=== PATIENT | female | born 1965 | race Caucasian/White ===

== ENCOUNTER 2019-05-27 18:29 | Emergency (ER) | payer BC, SELFPAY ==
[2019-05-27 18:29] VITALS: BP 136/110; PULSE 108; RESP 18; TEMP 36.4; O2SAT 94; BMI 34.0
--- NOTE | 2019-05-27 18:36 | ED_ITS ---
Entered by Shikha Pearson, acting as scribe for May 27, 2019 18:29 HPI - Altered Mental Status General: Chief Complaint: Altered Mental Status Stated Complaint: BIZARRE BEHAVIOR Time Seen by Provider: 05/27/19 18:35 Source: patient, family and EMS Mode of arrival: EMS Limitations: no limitations History of Present Illness: HPI narrative: 54 yo Female presents to ED with complaint of altered mental status/bizarre behavior. Pt states that she has no idea why she was brought here. Pt states that she apparently does crazy stuff sometimes. Pt is tearful and states that she hasn't had anything to drink or taken any drugs. Pt's significant other states that patient has fibromyalgia. Pt states that everybody knows that fibromyalgia is a bullshit diagnosis. Pt's s ignificant other states that he called EMS because the patient was down and couldn't get up. Pt still has unsteady gait but is improved now. Pt's significant other states that the patient has had episodes like this before. MD complaint: altered mental status Onset (ago): hour(s) Consistency of symptoms: Waxing and Waning Context: unknown Associated symptoms: Reports other (bizarre behavior) Review of Systems General: Reports: other (negative unless marked) Const: Denies: fever, chills, body aches, fatigue, malaise or diaphoresis Eyes: Denies: change in vision or blurry vision ENMT: Denies: throat pain, painful swallowing, hoarseness, ear pain, ear discharge, Change in hearing or nasal discharge Card: Denies: chest pain, palpitations, irregular heart rhythm, syncope, pre- syncope, shortness of breath on exertion or shortness of breath when lying down Resp: Denies: shortness of breath, productive cough, non-productive cough, wheezing, coughing up blood or chest congestion GI: Denies: abdominal pain, nausea, vomiting, vomiting blood, coffee grounds in vomit, diarrhea, constipation, cramping, blood in stool or black tarry stool : Denies: flank pain, painful urination, urinary frequency, urinary urgency, decreased urine ouput, urinary incontinence or blood in urine Musc: Denies: neck pain, back pain, extremity pain, extremity swelling, joint pain, joint swelling, joint warmth or joint stiffness Skin/Breast: Denies: rash, skin tenderness or yellow skin Neuro: Denies: headache, numbness in extremities, weakness in extremities, changes in sensation, lack of coordination, difficulty walking, dizziness, vertigo or confusion Endo: Denies: excessive thirst, tired all the time, cold intolerance, excessive sweating, flushing or hot flashes Thomas/Lymph: Denies: easy bruising, easy bleeding, petechiae or enlarged lymph nodes All/Imm: Denies: hives, throat swelling, tongue swelling, facial swelling or acute wheezing PFSH ED PFSH: Statuses (acute, chronic, etc) shown below reflect problem list status as previously entered and may not be historically accurate Social History Smoking and tobacco status: never smoked Physical Exam Const: COMMON NORMALS: no apparent distress, oriented x3, no limitations, healthy appearing and well nourished EXAM LIMITATIONS: no altered mental status GENERAL APPEARANCE: cooperative, well kempt and well developed ORIENTATION/CONSCIOUSNESS: Yes awake HENMT: COMMON NORMALS: normocephalic, head/scalp atraumatic, hearing grossly normal bilaterally, external ears normal, EAC's normal, external nose normal and moist oral mucous membranes HEAD & SCALP: normal to inspection, normocephalic and atraumatic FACE & SINUS: normal facial exam and face symmetric NOSE: external nose normal and nares normal EXTERNAL EAR: Yes external ears normal EXTERNAL AUDITORY CANAL: EAC's normal MOUTH: oral and palatal mucosa normal and tongue normal Eye: COMMON NORMALS: PERRL, EOMs intact bilaterally, conjunctivae normal and no scleral icterus GENERAL EYE: normal appearance of both eyes and normal light reflex CONJUNCTIVA: Yes conjunctivae normal SCLERA: sclerae normal CORNEA: Yes corneas normal PUPIL: Yes PERRL DIRECT OPHTHALMOSCOPY: Yes normal light reflex Neck/C-Spine: COMMON NORMALS: full ROM, no lymphadenopathy, supple, no meningeal signs and no JVD GENERAL: Yes normal visual inspection and Yes trachea midline CERVICAL SPINE: Yes cervical ROM normal Chest: COMMONS NORMALS: inspection of chest normal and palpation of chest normal Resp: COMMON NORMALS: normal respiratory effort, no retractions, no use of accessory muscles and clear to auscultation bilaterally EFFORT & INSPECTION: Yes able to speak in complete sentences AUSCULTATION: clear to auscultation bilaterally Cardio: COMMON NORMALS: no JVD, regular rate, regular rhythm, S1 normal heart sound, S2 normal heart sound, no gallops, no clicks, no murmurs and no rub JUGULAR VENOUS DISTENTION: no JVD RATE: regular rate RHYTHM: regular rhythm HEART SOUNDS: S1 normal and S2 normal GI: COMMON NORMALS: soft to palpation, non-tender, no hepatosplenomegaly and no masses INSPECTION: Yes normal to inspection PALPATION: Yes soft and Yes no hepatosplenomegaly : COMMON NORMALS: Yes no CVA tenderness BLADDER/KIDNEY EXAM: Yes no CVA tenderness Back/Pelvis: COMMON NORMALS: no CVA tenderness, thoracic and lumbar spine normal to inspection, no thoracic nor lumbar tenderness and thoraco-lumbar ROM normal Extremity: COMMON NORMALS: normal to inspection, full ROM, normal capillary refill, no joint enlargement, no clubbing, cyanosis or edema and no calf tenderness Neuro: COMMON NORMALS: oriented x3, CN's II-XII intact bilaterally, moves all extremities, no focal motor deficits and no sensory deficits noted MENINGEAL SIGNS: Yes no meningeal signs Psych: COMMON NORMALS: mental status grossly normal, thought process normal, cooperative, affect normal, speech normal and activity/motor behavior normal APPEARANCE: Yes well kempt SPEECH: Yes normal speech THOUGHT PROCESS: normal thought process Skin: COMMON NORMALS: no rashes or lesions noted, skin turgor normal, no jaundice, no petechiae and no mottling GENERAL SKIN EXAM: no rashes or lesions noted and turgor normal Course Vital Signs: Vital signs: Vital Signs Temperature 97.6 F 05/27/19 18:29 Pulse Rate 108 H 05/27/19 18:29 Respiratory Rate 18 05/27/19 18:29 Blood Pressure 136/110 05/27/19 18:29 Pulse Oximetry 94 05/27/19 18:29 MDM - Altered Mental Status MDM Narrative: Medical decision making narrative: Albertina is a 54-year-old female who comes in with altered mental status. Clinically she acts intoxicated and her blood alcohol is 308. Patient is adamant that she does not drink and her fianc? states the same. 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 She has a lactic acidosis and it is only slowly improving. At this time I have consulted Dr. Pereira to evaluate the patient. We will disposition per his recommendations. 2326 -the patient has been seen and evaluated by Dr. Rodriguez. 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 Clinically the patient is sober and shows no sign of clinical impairment. She is up, walking, and talking and not ataxic. She is reasonable and is able to formulate questions and her mind that are appropriate and answers questions appropriately. She will be taken home by her boyfriend who she lives with and he states he will care for her. She has had multiple other episodes of this in the past the only reason she was brought [facility] was because he found her on the ground. At this time I do not believe I have the criteria to hold her against her will. Dr. Pereira has seen and evaluated her and he is offered to see her in the clinic for follow-up. They do plan on doing that. They do understand they are signing out AGAINST MEDICAL ADVICE as we both think it would be best she were to stay clear her lactate with fluids but as she is improving clinically I think she can continue to do this with oral fluids at home. The patient does understand she is welcome to return here at any time. She will follow discharge instructions as given by Dr. Pereira. Lab Data: Labs: Lab Results 05/27/19 05/27/19 05/27/19 Range/Units 18:34 18:34 19:08 WBC (4.0-10.0) 10^3/ uL RBC (4.1-5.3) 10^6/u L Hgb (11.5-15.3) g/dL Hct (37.0-47.0) % MCV (81-99) fL MCH (28.0-34.0) pg MCHC (30.0-36.0) g/dL RDW (12.1-15.1) % Plt Count (130-400) 10^3/c mm MPV (7.4-10.4) fL Neut % (Auto) % Lymph % (Auto) % [place] % (Auto) % Eos % (Auto) % Baso % (Auto) % Neut # (Auto) (1.8-7.7) 10^3/u L Lymph # (Auto) (0.8-4.8) 10^3/u L [place] # (Auto) (0.2-0.9) 10^3/u L Eos # (Auto) (0.0-0.8) 10^3/u L Baso # (Auto) (0.0-0.1) 10^3/u L Nucleated RBC % (a uto) % Nucleated RBCs # /100WBC Specimen Type Arterial Sample Site Radial, right ABG pH 7.37 (7.35-7.45) ABG pCO2 39.4 (35-45) mmHg ABG pO2 75.9 L (80.0-100.0) mmH g ABG HCO3 22.5 (22-26) mmol/L ABG Base Excess -2.6 L (-2.0-2.0) mmol/ L Burt Test Pos Hematocrit 47.1 H (37-47) % O2 Delivery Device None FiO2 21.0 % Collections And Archives Director ID [email or web address] Sodium (136-145) mmol/L Potassium (3.5-5.1) mmol/L Chloride (98-107) mmol/L Carbon Dioxide (22-29) mmol/L Anion Gap (5-19) BUN (6-20) mg/dL Creatinine (0.5-0.9) mg/dL GFR Calculation (90-130) mL/min Glucose (65-115) mg/dL POC Glucose (70-110) mg/dL Lactic Acid (0.5-2.2) mmol/L Lactic Acid (Sepsi s) (0.5-2.2) mmol/L Calcium (8.5-10.5) mg/dL Magnesium (1.7-2.3) mg/dL Total Bilirubin (0.15-1.2) mg/dL AST (0-32) U/L ALT (0-33) U/L Alkaline Phosphata se (35-105) IU/L Ammonia (11-51) umol/L Creatine Kinase (26-192) U/L Troponin T Baselin e (0-10) ng/mL Troponin T 120 Min [place] (0-10) ng/mL Delta Troponin T (0-10) ABS# Total Protein (6.6-8.7) g/dL Albumin (3.5-5.2) g/dL Globulin (1.3-4.6) g/dL Ser , Rhea i-Qnt mIU/mL Urine Color Yellow (Yellow) Urine Appearance Clear (CLEAR) Urine pH 7 (5-7) Ur Specific Gravit y 1.005 (1.005-1.030) Urine Protein Neg (Negative) Urine Glucose (UA) Norm (Normal) Urine Ketones Negative (Negative) Urine Occult Blood Neg (Negative) Urine Nitrate Negative (Negative) Urine Bilirubin Neg (NEGATIVE) Urine Urobilinogen Norm (Negative) mg/dL Ur Leukocyte Liz ase Negative (Negative) Urine RBC Rare (0-2) /hpf Urine WBC Rare (0-5) /hpf Ur Squamous Epith Cells 0-4 H (0-5) Urine Bacteria Trace (NONE) Urine Opiates Scre en Negative (Negative) ng/mL Ur Barbiturates Sc reen Negative (Negative) ng/mL Ur Phencyclidine S crn Negative (Negative) ng/mL Ur Amphetamines Sc reen Negative (Negative) ng/mL U Benzodiazepines Scrn Negative (Negative) ng/mL Urine Cocaine Scre en Negative (Negative) ng/mL U Marijuana (THC) Screen Negative (Negative) ng/mL Ethyl Alcohol (0-10) mg/dL Serum Ketones (Negative) 05/27/19 05/27/19 05/27/19 Range/Units 19:08 19:08 19:08 WBC 6.2 (4.0-10.0) 10^3/ uL RBC 4.75 (4.1-5.3) 10^6/u L Hgb 14.9 (11.5-15.3) g/dL Hct 45.4 (37.0-47.0) % MCV 95.6 (81-99) fL MCH 31.4 (28.0-34.0) pg MCHC 32.8 (30.0-36.0) g/dL RDW 13.5 (12.1-15.1) % Plt Count 253 (130-400) 10^3/c mm MPV 9.4 (7.4-10.4) fL Neut % (Auto) 66.8 % Lymph % (Auto) 29.6 % [place] % (Auto) 2.4 % Eos % (Auto) 0.2 % Baso % (Auto) 0.0 % Neut # (Auto) 4.1 (1.8-7.7) 10^3/u L Lymph # (Auto) 1.8 (0.8-4.8) 10^3/u L [place] # (Auto) 0.2 (0.2-0.9) 10^3/u L Eos # (Auto) 0.0 (0.0-0.8) 10^3/u L Baso # (Auto) 0.0 (0.0-0.1) 10^3/u L Nucleated RBC % (a uto) 0 % Nucleated RBCs # 0.0 /100WBC Specimen Type Sample Site ABG pH (7.35-7.45) ABG pCO2 (35-45) mmHg ABG pO2 (80.0-100.0) mmH g ABG HCO3 (22-26) mmol/L ABG Base Excess (-2.0-2.0) mmol/ L Burt Test Hematocrit (37-47) % O2 Delivery Device FiO2 % Collections And Archives Director ID Sodium 147 H (136-145) mmol/L Potassium 3.8 (3.5-5.1) mmol/L Chloride 103 (98-107) mmol/L Carbon Dioxide 24 (22-29) mmol/L Anion Gap 23.8 H (5-19) BUN 11 (6-20) mg/dL Creatinine 0.6 (0.5-0.9) mg/dL GFR Calculation 105.0 (90-130) mL/min Glucose 106 (65-115) mg/dL POC Glucose (70-110) mg/dL Lactic Acid (0.5-2.2) mmol/L Lactic Acid (Sepsi s) (0.5-2.2) mmol/L Calcium 9.4 (8.5-10.5) mg/dL Magnesium 2.0 (1.7-2.3) mg/dL Total Bilirubin 0.2 (0.15-1.2) mg/dL AST 46 H (0-32) U/L ALT 48 H (0-33) U/L Alkaline Phosphata se 89 (35-105) IU/L Ammonia (11-51) umol/L Creatine Kinase 55 (26-192) U/L Troponin T Baselin e (0-10) ng/mL Troponin T 120 Min [place] (0-10) ng/mL Delta Troponin T (0-10) ABS# Total Protein 7.9 (6.6-8.7) g/dL Albumin 4.7 (3.5-5.2) g/dL Globulin 3.2 (1.3-4.6) g/dL Ser , Rhea i-Qnt 1.17 mIU/mL Urine Color (Yellow) Urine Appearance (CLEAR) Urine pH (5-7) Ur Specific Gravit y (1.005-1.030) Urine Protein (Negative) Urine Glucose (UA) (Normal) Urine Ketones (Negative) Urine Occult Blood (Negative) Urine Nitrate (Negative) Urine Bilirubin (NEGATIVE) Urine Urobilinogen (Negative) mg/dL Ur Leukocyte Liz ase (Negative) Urine RBC (0-2) /hpf Urine WBC (0-5) /hpf Ur Squamous Epith Cells (0-5) Urine Bacteria (NONE) Urine Opiates Scre en (Negative) ng/mL Ur Barbiturates Sc reen (Negative) ng/mL Ur Phencyclidine S crn (Negative) ng/mL Ur Amphetamines Sc reen (Negative) ng/mL U Benzodiazepines Scrn (Negative) ng/mL Urine Cocaine Scre en (Negative) ng/mL U Marijuana (THC) Screen (Negative) ng/mL Ethyl Alcohol 308 H* (0-10) mg/dL Serum Ketones Negative (Negative) 05/27/19 05/27/19 05/27/19 Range/Units 19:08 19:12 19:18 WBC (4.0-10.0) 10^3/ uL RBC (4.1-5.3) 10^6/u L Hgb (11.5-15.3) g/dL Hct (37.0-47.0) % MCV (81-99) fL MCH (28.0-34.0) pg MCHC (30.0-36.0) g/dL RDW (12.1-15.1) % Plt Count (130-400) 10^3/c mm MPV (7.4-10.4) fL Neut % (Auto) % Lymph % (Auto) % [place] % (Auto) % Eos % (Auto) % Baso % (Auto) % Neut # (Auto) (1.8-7.7) 10^3/u L Lymph # (Auto) (0.8-4.8) 10^3/u L [place] # (Auto) (0.2-0.9) 10^3/u L Eos # (Auto) (0.0-0.8) 10^3/u L Baso # (Auto) (0.0-0.1) 10^3/u L Nucleated RBC % (a uto) % Nucleated RBCs # /100WBC Specimen Type Sample Site ABG pH (7.35-7.45) ABG pCO2 (35-45) mmHg ABG pO2 (80.0-100.0) mmH g ABG HCO3 (22-26) mmol/L ABG Base Excess (-2.0-2.0) mmol/ L Burt Test Hematocrit (37-47) % O2 Delivery Device FiO2 % Collections And Archives Director ID Sodium (136-145) mmol/L Potassium (3.5-5.1) mmol/L Chloride (98-107) mmol/L Carbon Dioxide (22-29) mmol/L Anion Gap (5-19) BUN (6-20) mg/dL Creatinine (0.5-0.9) mg/dL GFR Calculation (90-130) mL/min Glucose (65-115) mg/dL POC Glucose 102 (70-110) mg/dL Lactic Acid 3.9 H (0.5-2.2) mmol/L Lactic Acid (Sepsi s) (0.5-2.2) mmol/L Calcium (8.5-10.5) mg/dL Magnesium (1.7-2.3) mg/dL Total Bilirubin (0.15-1.2) mg/dL AST (0-32) U/L ALT (0-33) U/L Alkaline Phosphata se (35-105) IU/L Ammonia (11-51) umol/L Creatine Kinase (26-192) U/L Troponin T Baselin e 9 (0-10) ng/mL Troponin T 120 Min [place] (0-10) ng/mL Delta Troponin T (0-10) ABS# Total Protein (6.6-8.7) g/dL Albumin (3.5-5.2) g/dL Globulin (1.3-4.6) g/dL Ser , Rhea i-Qnt mIU/mL Urine Color (Yellow) Urine Appearance (CLEAR) Urine pH (5-7) Ur Specific Gravit y (1.005-1.030) Urine Protein (Negative) Urine Glucose (UA) (Normal) Urine Ketones (Negative) Urine Occult Blood (Negative) Urine Nitrate (Negative) Urine Bilirubin (NEGATIVE) Urine Urobilinogen (Negative) mg/dL Ur Leukocyte Liz ase (Negative) Urine RBC (0-2) /hpf Urine WBC (0-5) /hpf Ur Squamous Epith Cells (0-5) Urine Bacteria (NONE) Urine Opiates Scre en (Negative) ng/mL Ur Barbiturates Sc reen (Negative) ng/mL Ur Phencyclidine S crn (Negative) ng/mL Ur Amphetamines Sc reen (Negative) ng/mL U Benzodiazepines Scrn (Negative) ng/mL Urine Cocaine Scre en (Negative) ng/mL U Marijuana (THC) Screen (Negative) ng/mL Ethyl Alcohol (0-10) mg/dL Serum Ketones (Negative) 05/27/19 05/27/19 05/27/19 Range/Units 19:18 20:49 21:40 WBC (4.0-10.0) 10^3/ uL RBC (4.1-5.3) 10^6/u L Hgb (11.5-15.3) g/dL Hct (37.0-47.0) % MCV (81-99) fL MCH (28.0-34.0) pg MCHC (30.0-36.0) g/dL RDW (12.1-15.1) % Plt Count (130-400) 10^3/c mm MPV (7.4-10.4) fL Neut % (Auto) % Lymph % (Auto) % [place] % (Auto) % Eos % (Auto) % Baso % (Auto) % Neut # (Auto) (1.8-7.7) 10^3/u L Lymph # (Auto) (0.8-4.8) 10^3/u L [place] # (Auto) (0.2-0.9) 10^3/u L Eos # (Auto) (0.0-0.8) 10^3/u L Baso # (Auto) (0.0-0.1) 10^3/u L Nucleated RBC % (a uto) % Nucleated RBCs # /100WBC Specimen Type Sample Site ABG pH (7.35-7.45) ABG pCO2 (35-45) mmHg ABG pO2 (80.0-100.0) mmH g ABG HCO3 (22-26) mmol/L ABG Base Excess (-2.0-2.0) mmol/ L Burt Test Hematocrit (37-47) % O2 Delivery Device FiO2 % Collections And Archives Director ID Sodium (136-145) mmol/L Potassium (3.5-5.1) mmol/L Chloride (98-107) mmol/L Carbon Dioxide (22-29) mmol/L Anion Gap (5-19) BUN (6-20) mg/dL Creatinine (0.5-0.9) mg/dL GFR Calculation (90-130) mL/min Glucose (65-115) mg/dL POC Glucose (70-110) mg/dL Lactic Acid (0.5-2.2) mmol/L Lactic Acid (Sepsi s) 3.4 H (0.5-2.2) mmol/L Calcium (8.5-10.5) mg/dL Magnesium (1.7-2.3) mg/dL Total Bilirubin (0.15-1.2) mg/dL AST (0-32) U/L ALT (0-33) U/L Alkaline Phosphata se (35-105) IU/L Ammonia 19 (11-51) umol/L Creatine Kinase (26-192) U/L Troponin T Baselin e (0-10) ng/mL Troponin T 120 Min [place] 7.98 (0-10) ng/mL Delta Troponin T -1.02 L (0-10) ABS# Total Protein (6.6-8.7) g/dL Albumin (3.5-5.2) g/dL Globulin (1.3-4.6) g/dL Ser , Rhea i-Qnt mIU/mL Urine Color (Yellow) Urine Appearance (CLEAR) Urine pH (5-7) Ur Specific Gravit y (1.005-1.030) Urine Protein (Negative) Urine Glucose (UA) (Normal) Urine Ketones (Negative) Urine Occult Blood (Negative) Urine Nitrate (Negative) Urine Bilirubin (NEGATIVE) Urine Urobilinogen (Negative) mg/dL Ur Leukocyte Liz ase (Negative) Urine RBC (0-2) /hpf Urine WBC (0-5) /hpf Ur Squamous Epith Cells (0-5) Urine Bacteria (NONE) Urine Opiates Scre en (Negative) ng/mL Ur Barbiturates Sc reen (Negative) ng/mL Ur Phencyclidine S crn (Negative) ng/mL Ur Amphetamines Sc reen (Negative) ng/mL U Benzodiazepines Scrn (Negative) ng/mL Urine Cocaine Scre en (Negative) ng/mL U Marijuana (THC) Screen (Negative) ng/mL Ethyl Alcohol (0-10) mg/dL Serum Ketones (Negative) Imaging Data^: CT Head: Radiologist's impression: [address] [address] [address] Scan Report Signed Patient: Iraida Yañez #: [id number] : 1965Acct#:[id number] Age/Sex: 54 / FADM Date: 05/27/19 Loc: ERRoom/Bed: Attending Dr: Ordering Provider/Ordering MD: Stephanie Tong DO Date of Service: 05/27/19 Procedure(s): CT head wo con* [id number] Accession Number(s): [id number] Report Number: [id number] PROCEDURE INFORMATION: Exam: CT Head Without Contrast Exam date and time: 05/27/2019 6:47 PM Age: 54 years old Clinical indication: Altered mental status/memory loss; Confusion or disorientation; Patient HX: AMS / behavior changes; Additional info: Fournier/ams TECHNIQUE: Imaging protocol: Computed tomography of the head without contrast. Total DLP: 750.69 mGy-cm Radiation optimization: All CT scans at this facility use at least one of these dose optimization techniques: automated exposure control; mA and/or kV adjustment per patient size (includes targeted exams where dose is matched to clinical indication); or iterative reconstruction. COMPARISON: No relevant prior studies available. FINDINGS: Brain: Normal. No hemorrhage. Unremarkable white matter. No mass effect. Ventricles: Normal. No ventriculomegaly. Bones/joints: Unremarkable. No acute fracture. Sinuses: Visualized sinuses are unremarkable. No fluid levels. Mastoid air cells: Visualized mastoid air cells are well aerated. Soft tissues: Unremarkable. CT/CT head wo con* [id number] IMPRESSION: No acute intracranial abnormality. Radiation Dose CTDIVOL = (mGy): DLP = 750.69 (mGy-cm) Dictated By:Alex Lara Signed By:Alex LaraSignshahida Date/Time:05/27/191945 DD/ 44 EKG Data^: EKG 1: Attestation: I personally reviewed and interpreted this EKG as follows: EKG interpretation date: 05/27/19 EKG interpretation time: 19:06 Interpretation: Normal sinus rhythm at 102 beats a minute, nonspecific ST and T wave changes, incomplete right bundle branch block. Discharge Plan Discharge Patient Disposition: Left Against Medical Advice Clinical Impression: Altered mental status Condition: Stable Prescriptions: No Action carisoprodol 350 mg tablet 350 mg PO DAILY PRN (Reason: Pain) RF: 0 Discharge Orders: Discharge Order (Routine); Ordered 05/27/19 Ordered By: Stephanie Tong Referrals: Adi Pereira MD [Hospitalist] - Discharge Activity: Increase activity as tolerated Patient Instructions: Alcohol Intoxication (ED) Activity Restrictions/Additional Instructions: You're leaving AGAINST MEDICAL ADVICE and are at risk for or severe permanent disability by doing so. You are more than welcome to return at any time for recheck and for further evaluation and care suture change you change your mind. Stand Alone Forms: Against Medical Advice Coding Level of Care Code ED Special Education Professional for Chg Fwd Exam Problem Focused The documentation recorded by the Michel pantoja Carmen, accurately reflects the service I personally performed and the decisions made by Ran davis Eli N May 27, 2019 18:29
--- NOTE | 2019-05-27 18:43 | XR_ITS ---
WS: [id number] ONE VIEW CHEST HISTORY: 54 years old Female with cough AP upright chest no comparison FINDINGS: No pneumothorax, pleural effusion, consolidation/atelectasis. Cardiac silhouette mildly enlarged. Pul monary vascular markings unremarkable. No subdiaphragmatic free air. No fracture seen. XR/XR chest 1V portable [id number] IMPRESSION: 1. No acute cardiopulmonary findings. 2. Mild enlarged cardiac silhouette; cardiomegaly and/or pericardial effusion n ot excluded.
--- NOTE | 2019-05-27 18:44 | ECG_ITS ---
Measurements Intervals [place] Rate: 88 P: 46 SC: 175 QRS: -9 QRSD: 92 T: 48 QT: 394 QTc: 479 SINUS RHYTHM LOW QRS VOLTAGE IN PRECORDIAL LEADS [QRS DEFLECTION < 1.0 mV IN CHEST LEADS] PATTERN CONSISTENT WITH PULMONARY DISEASE INCOMPLETE RIGHT BUNDLE BRANCH BLOCK [90+ ms QRS DURATION, TERMINAL R IN V1/V2, 40+ ms S IN I/aVL/V4/V5/V6] NONSPECIFIC T-WAVE ABNORMALITY No previous ECG available for comparison Electronically Signed On 05-28-2019 0:20:45 HIGH PRESSURE KETTLE OPERATOR by Kristy Fox M.D. [id number]
--- NOTE | 2019-05-27 18:44 | CTR_ITS ---
PROCEDURE INFORMATION: Exam: CT Head Without Contrast Exam date and time: 05/27/2019 6:47 PM Age: 54 years old Clinical indication: Altered mental status/memory loss; Confusion or disorientation; Patient HX: AMS / behavior changes; Additional info: Fournier/ams TECHNIQUE: Imaging protocol: Computed tomography of the head without contrast. Total DLP: 750.69 mGy-cm Radiation optimization: All CT scans at this facility use at least one of these dose optimization techniques: automated exposure control; mA and/or kV adjustment per patient size (includes targeted exams where dose is matched to clinical indication); or iterative reconstruction. COMPARISON: No relevant prior studies available. FINDINGS: Brain: Normal. No hemorrhage. Unremarkable white matter. No mass effect. Ventricles: Normal. No ventriculomegaly. Bones/joints: Unremarkable. No acute fracture. Sinuses: Visualized sinuses are unremarkable. No fluid levels. Mastoid air cells: Visualized mastoid air cells are well aerated. Soft tissues: Unremarkable. CT/CT head wo con* [id number] IMPRESSION: No acute intracranial abnormality. Radiation Dose CTDIVOL = (mGy): DLP = 750.69 (mGy-cm)
[2019-05-27 19:14] LABS: ABG PCO2 39.4 mmHg (35-45); ABG PH Result 7.37 (7.35-7.45); Arterial Blood Gas Hematocrit 47.1 % (37-47); Base Excess ABG -2.6 mmol/L (-2.0-2.0); Blood Gas Allen Test Pos; Blood Gas Sample Site Radial, right; Blood Gas Sample Type Arterial; HCO3 ABG 22.5 mmol/L (22-26); PO2 ABG 75.9 mmHg (80.0-100.0)
[2019-05-27 19:15] LABS: Glucose Point of Care 102 mg/dL (70-110)
[2019-05-27 19:28] LABS: Eosinophils % 0.2 %; Hematocrit 45.4 % (37.0-47.0); Hemoglobin 14.9 g/dL (11.5-15.3); Lymphocytes # 1.8 10^3/uL (0.8-4.8); Lymphocytes % 29.6 %; Mean Corpuscular HGB Conc 32.8 g/dL (30.0-36.0); Mean Corpuscular Hemoglobin 31.4 pg (28.0-34.0); Mean Corpuscular Volume 95.6 fL (81-99); Mean Platelet Volume 9.4 fL (7.4-10.4); Monocytes # 0.2 10^3/uL (0.2-0.9); Monocytes % 2.4 %; Neutrophils # 4.1 10^3/uL (1.8-7.7); Neutrophils % 66.8 %; Nucleated Red Blood Cells % 0 %; Platelet Count 253 10^3/cmm (130-400); Red Blood Count 4.75 10^6/uL (4.1-5.3); Red Cell Distribution Width 13.5 % (12.1-15.1); White Blood Count 6.2 10^3/uL (4.0-10.0)
[2019-05-27] MEDS: sodium chloride 0.9% 1,000 ML 999 ML IV (19:34)
[2019-05-27 19:39] LABS: Ketone (Acetest) Serum Negative (Negative)
[2019-05-27 19:44] LABS: Lactic Sepsis W/Reflex 3.9 mmol/L (0.5-2.2)
[2019-05-27 19:46] LABS: HCG Quantitative 1.17 mIU/mL
[2019-05-27 19:47] LABS: Troponin(5th) Baseline 9 ng/mL (0-10)
[2019-05-27 19:56] LABS: Ammonia 19 umol/L (11-51)
[2019-05-27 19:58] LABS: Alanine Aminotransferase 48 U/L (0-33); Albumin Level 4.7 g/dL (3.5-5.2); Alkaline Phosphatase 89 IU/L (35-105); Anion Gap 23.8 (5-19); Aspartate Amino Transferase 46 U/L (0-32); Blood Urea Nitrogen 11 mg/dL (6-20); Calcium 9.4 mg/dL (8.5-10.5); Carbon Dioxide 24 mmol/L (22-29); Chloride 103 mmol/L (98-107); Creatine Phosphokinase 55 U/L (26-192); Globulin 3.2 g/dL (1.3-4.6); Glucose 106 mg/dL (65-115); Potassium 3.8 mmol/L (3.5-5.1); Sodium 147 mmol/L (136-145); Total Bilirubin 0.2 mg/dL (0.15-1.2); Total Protein 7.9 g/dL (6.6-8.7)
[2019-05-27 20:03] LABS: Alcohol Level 308 mg/dL (0-10)
[2019-05-27 20:22] LABS: Add Urine Culture? No; Bacteria Urine TRACE; Bilirubin Urine Neg (NEGATIVE); Blood Urine Neg (Negative); Glucose Urine UA Norm (Normal); Ketones Urine Negative (Negative); Leukocyte Esterase Urine Negative (Negative); Nitrate Urine Negative (Negative); Protein Urine Neg (Negative); RBC Urine RARE /hpf (0-2); Specific Gravity, Urine 1.005 (1.005-1.030); Squamous Epithelial Cell Urine 0-4 (0-5); Urine Appearance Clear (CLEAR); Urine Color Yellow (Yellow); Urobilinogen Urine Norm (Negative); WBC Urine RARE /hpf (0-5); pH Urine 7 (5-7)
[2019-05-27 20:38] LABS: Amphetamines Screen Urine Negative (Negative); Barbiturates Screen Urine Negative (Negative); Benzodiazepines Screen Urine Negative (Negative); Cocaine Screen Urine Negative (Negative); Opiate Screen Urine Negative (Negative); PCP Screen Urine Negative (Negative); THC Screen Urine Negative (Negative)
--- NOTE | 2019-05-27 20:44 | ECG_ITS ---
Measurements Intervals [place] Rate: 102 P: 55 ME: 165 QRS: 1 QRSD: 102 T: 50 QT: 371 QTc: 483 SINUS TACHYCARDIA LOW QRS VOLTAGE IN PRECORDIAL LEADS [QRS DEFLECTION < 1.0 mV IN CHEST LEADS] PATTERN CONSISTENT WITH PULMONARY DISEASE INCOMPLETE RIGHT BUNDLE BRANCH BLOCK [90+ ms QRS DURATION, TERMINAL R IN V1/V2, 40+ ms S IN I/aVL/V4/V5/V6] No previous ECG available for comparison Electronically Signed On 05-28-2019 0:22:45 PROTECTION MANAGER by Kristy Fox M.D. [id number]
[2019-05-27 21:11] LABS: Reflex Lactate Order REFLEX LACTIC ORDERD
[2019-05-27 21:19] LABS: Troponin 5 2HR 7.98 ng/mL (0-10)
[2019-05-27 21:32] LABS: Troponin 5 2HR Delta -1.02 ABS# (0-10)
[2019-05-27 22:05] LABS: Lactic Acid level (Lactate) 3.4 mmol/L (0.5-2.2)
[2019-05-27] MEDS: piperacillin-tazobactam 3.375 GM in sodium chloride 0.9% (plus) 50 ML IV (23:02)
--- NOTE | 2019-05-27 23:36 | P.HP_ITS ---
Providers/Chief Complaint Chief Complaint: BIZARRE BEH[facility]IOR History of Present Illness Albertina Yañez is a 54 year old female with a past medical history of bipolar disorder, anxiety, depression, insomnia, fibromyalgia bed for Sanjeev who presents to the emergency room due to complaints of intermittent episodes of acting inebriated. Patient presents with her friend who helps with history taking. Patient states that she has a history of anxiety, bipolar disorder, depression, she is on multiple medications, 1 including a benzodiazepine, uses it as prescribed, does not use it more than prescribed. Denies using it today. She also uses Soma and Tylenol 3 for fibromyalgia, uses it as needed, denies using it today. Patient states that ever since she can remember, she has intermittent episodes of acting inebriated, which includes frequent falls, blacking out, mental confusion, nausea vomiting, slurred speech, acting strangely, acting inebriated. Denies seizure-like episodes, denies tonic-clonic episodes of upper lower extremes, denies urinary or bowel continence. Denies facial droop, denies paralysis, denies visual defects, does have intermittent slurred speech, no facial droop, no paresthesias, no weakness. Patient denies drinking alcohol for the last 10 days, she does drink alcohol, only on occasion, for example 10 days ago she had 3 shots of alcohol, denies drug use, denies smoking. Patient's friend and patient states that she has had these intermittent episodes of what it seems to be like inebriation for more than 20 years, they seem to come on after a glycemic meal, so they have been limiting carbs, this afternoon she had an episode of inebriation after eating a [employer] meal, hamburger with cheese, they took out the buns, try to limit the amount of glycemic contents of her food. The reason she came into the emergency room today, as her friend forced her to come to the emergency room. She denies any history of surgeries to her bowels. Denies any diarrhea. Denies any bloody or black stools. Denies feeling depressed or sad. Review of Systems Const: Denies: fever, chills, fatigue or malaise Eyes: Denies: change in vision or blurry vision ENMT: Denies: nasal congestion Resp: Denies: shortness of breath, productive cough, non-productive cough or wheezing GI: Denies: abdominal pain, nausea, vomiting, vomiting blood, diarrhea, constipation, blood in stool or black tarry stool : Denies: flank pain, painful urination or urinary frequency Musc: Denies: neck pain or back pain Skin/Breast: Denies: rash Neuro: Denies: headache, dizziness or vertigo Psych: Denies: anxiety or depression Endo: Denies: excessive urination or excessive thirst Medications/Allergies Home Medications Medication Instructions Recorded Confirmed Last Taken Type carisoprodol 350 mg PO DAILY PRN 05/27/19 05/27/19 05/27/19 History Allergies Allergy/AdvReac Type Severity Reaction Status Date / Time No Known Allergies Allergy Verified 05/27/19 18:41 PFSH Acute PFSH: Statuses (acute, chronic, etc) shown below reflect problem list status as previously entered and may not be historically accurate Medical History (Updated 05/27/19 @ 23:47 by Adi Pereira MD) Bipolar 1 disorder (Acute) Depression with anxiety (Acute) Fibromyalgia (Acute) Insomnia (Acute) Family History (Updated 05/27/19 @ 23:48 by Adi Pereira MD) Other Cancer Social History (Updated 05/27/19 @ 23:47 by Adi Pereira MD) Smoking and tobacco status: never smoked Alcohol intake: current Alcohol intake frequency: holidays/special occasions only Substance/Drug Use: never Vitals/I&O/Wt Last Vital Signs Temp 97.6 F 05/27/19 18:29 Pulse 108 H 05/27/19 18:29 Resp 18 05/27/19 18:29 BP 136/110 05/27/19 18:29 Pulse Ox 94 05/27/19 18:29 Weight last 48 hrs Weight 104.326 kg Physical Exam 2 Const: COMMON NORMALS: no apparent distress and oriented x3 GENERAL APPEARANCE: cooperative and comfortable HENMT: COMMON NORMALS: normocephalic HEAD & SCALP: normocephalic Eye: COMMON NORMALS: PERRL and EOMs intact bilaterally GENERAL EYE: normal appearance of both eyes PUPIL: Yes PERRL DIRECT OPHTHALMOSCOPY: Yes no papilledema Neck/C-Spine: COMMON NORMALS: full ROM, no lymphadenopathy, no JVD and thyroid normal THYROID: thyroid normal Lymph: LYMPHATIC: no lymphadenopathy noted Resp: COMMON NORMALS: normal respiratory effort, no retractions, no use of accessory muscles and clear to auscultation bilaterally AUSCULTATION: clear to auscultation bilaterally Cardio: COMMON NORMALS: no JVD, regular rate, regular rhythm, S1 normal heart sound, S2 normal heart sound, no gallops, no clicks and no murmurs RATE: regular rate RHYTHM: regular rhythm HEART SOUNDS: S1 normal and S2 normal GI: COMMON NORMALS: normal to inspection, nondistended, normoactive bowel sounds, soft to palpation, non-tender and no hepatosplenomegaly PALPATION: Yes soft and Yes no hepatosplenomegaly Extremity: COMMON NORMALS: normal to inspection, full ROM and no pedal edema Neuro: COMMON NORMALS: oriented x3, CN's II-XII intact bilaterally, moves all extremities and no focal motor deficits OTHER: No tremor, no visual hallucinations, no auditory hallucinations, no tactile hallucinations, no nausea, no vomiting, no diarrhea, no chest pain, no palpitations, no shortness of breath Psych: COMMON NORMALS: mental status grossly normal, thought process normal and cooperative APPEARANCE: Yes grossly normal and Yes well kempt ACTIVITY/MOTOR BEHAVIOR: Yes appropriate eye contact SPEECH: Yes rapid THOUGHT PROCESS: normal thought process THOUGHT CONTENT: Yes normal thought content, No suicidality, No homicidality and No hallucination(s) Data : 05/27/19 19:08 05/27/19 19:08 Micro: Microbiology 05/27/19 19:18 Blood Culture - Preliminary Blood SPECIMEN COLLECTED 05/27/19 19:08 Blood Culture - Preliminary Blood SPECIMEN COLLECTED A&P Assessment and plan (1) Elevated blood alcohol level: -Blood alcohol level was 270, with no recent history of alcohol use -Current CIWA score is 0, patient is standing in the emergency room with a blood alcohol level of 270, alert oriented x3, answering all questions appropriately, neurologic exam unremarkable, intact [id number], no tremor, no halluc inations, no nausea, no vomiting -This case is certainly perplexing, patient is adamant she does not drink alcohol on a daily basis, adamant she does not use drugs, adamant she only uses her Tylenol 3, Soma, lorazepam as needed, has not used it today, does not use it more than prescribed -Does not feel down depressed or sad currently -THIS SEEMS LIKE AUTOBREWER SYNDROME Plan: -Patient was advised for admittance to the hospital for hydration given lactic acidosis and dehydration and further work-up -Patient declined, left AGAINST MEDICAL ADVICE, patient advised of the risk of morbidity and mortality of leaving is medical advice, patient voiced understanding, all questions answered, patient left AGAINST MEDICAL ADVICE -Patient was given my contact number, I will try to see her in clinic for further work-up for auto carballo syndrome -Patient was advised to avoid carbs, do not drink and drive, avoid driving for now -Do not operate heavy machinery -patient was advised to come back to the emergency room she would have repeat symptoms -Patient was advised to avoid alcohol use Status: Acute Code(s): R78.0 - Finding of alcohol in blood (2) Hypernatremia: Status: Acute Code(s): E87.0 - Hyperosmolality and hypernatremia (3) Dehydration: Status: Acute Code(s): E86.0 - Dehydration (4) Lactic acidosis: Status: Acute Code(s): E87.2 - Acidosis (5) Depression with anxiety: Status: Acute Code(s): F41.8 - Other specified anxiety disorders (6) Bipolar 1 disorder: Status: Acute Code(s): F31.9 - Bipolar disorder, unspecified (7) Fibromyalgia: Status: Acute Code(s): M79.7 - Fibromyalgia (8) Insomnia: Status: Acute Code(s): G47.00 - Insomnia, unspecified Attestations Medical Necessity Statement*: Patient left AGAINST MEDICAL ADVICE Coding Level of Care Code Acute Reimbursement Liaison for g Fwd Diagnoses Elevated blood alcohol level R78.0 Hypernatremia E87.0 Dehydration E86.0 Lactic acidosis E87.2 Depression with anxiety F41.8 Bipolar 1 disorder F31.9 Fibromyalgia M79.7 Insomnia G47.00
[2019-05-27 23:39] LABS: Alcohol Level 270 mg/dL (0-10)
[2019-05-27 23:44] VITALS: BP 138/79; PULSE 89; RESP 15; O2SAT 97
[2019-05-27 23:54] LABS: Salicylate 0.5 mg/dL (3-10)
[2019-05-27 23:56] LABS: Acetaminophen < 5.0 ug/mL (10-30)
== END 2019-05-27 23:47 | disposition left against medical advice (07) ==
PROVIDERS: Emergency Provider Emergency Medicine
DX: R41.82 Altered mental status, unspecified (principal); R78.0 Finding of alcohol in blood; F31.9 Bipolar disorder, unspecified; F41.8 Other specified anxiety disorders; E87.0 Hyperosmolality and hypernatremia; E86.0 Dehydration; E87.2 Acidosis; M79.7 Fibromyalgia; G47.00 Insomnia, unspecified; Z53.29 Procedure and treatment not carried out because of patient's decision for other reasons; Y90.8 Blood alcohol level of 240 mg/100 ml or more
CPT/HCPCS: 12345; 36416; 36600; 70450; 71045; 80053; 80307; 81001; 82009; 82140; 82550; 82803; 82962; 83605; 83735; 84484; 84702; 85025; 87040; 93005; 96361; 96365; 99283; 99284; A9270; J2543; J7030